=== PATIENT | female | born 1930 | race Caucasian/White ===

== ENCOUNTER 2017-02-27 08:11 | Outpatient (CLI) | payer MEDICARE ==
[2017-02-27 09:00] LABS: Hemoglobin 12.4 g/dL (12.0-16.0); Mean Corpuscular HGB CONC 32.5 g/dL (32.0-36.0); Mean Corpuscular Hemoglobin 31.9 pg (27.0-31.0); Mean Corpuscular Volume 98.1 fl (81.0-99.0); Platelet Count 185 thou/uL (130-400); RBC Distribution Width 11.8 % (11.5-14.5); White Blood Cell (WBC) Count 8.3 thou/uL (4.8-10.8)
[2017-02-27 09:08] LABS: Albumin 3.7 g/dL (3.4-4.8); Anion Gap 13 mmol/L (10-20); BUN (Urea Nitrogen) 31 mg/dL (9.8-20.1); BUN/Creatinine Ratio 18.34; Calc. Creatinine Clearance 0 mL/min (70-130); Calcium 8.8 mg/dL (7.8-10.44); Carbon Dioxide 25 mmol/L (23-31); Chloride 109 mmol/L (98-107); Estimated GFR-MDRD 29; Glucose 148 mg/dL (83-110); Potassium 4.2 mmol/L (3.5-5.1); Sodium 143 mmol/L (136-145)
[2017-02-27 18:04] LABS: Phosphorus 3.9 mg/dL (2.3-4.7)
== END 2017-02-27 08:12 | disposition home or self-care (01) ==
LOC: BURLAB 08:11
PROVIDERS: ATTEND Internal Medicine Nephrology
DX: E11.22 Type 2 diabetes mellitus with diabetic chronic kidney disease (principal); I12.9 Hypertensive chronic kidney disease with stage 1 through stage 4 chronic kidney disease, or unspecified chronic kidney disease; N18.3 Chronic kidney disease, stage 3 (moderate); N17.9 Acute kidney failure, unspecified; N39.0 Urinary tract infection, site not specified; E78.5 Hyperlipidemia, unspecified; I25.10 Atherosclerotic heart disease of native coronary artery without angina pectoris; R80.9 Proteinuria, unspecified
CPT/HCPCS: 36415; 80069; 85027

== ENCOUNTER 2018-05-04 18:33 | Emergency (ER) | payer MEDICARE ==
[2018-05-04 19:49] LABS: ALT (SGPT) 13 U/L (8-55); AST (SGOT) 13 U/L (5-34); Albumin 3.7 g/dL (3.4-4.8); Alkaline Phosphatase 65 U/L (40-150); Anion Gap 16 mmol/L (10-20); BUN (Urea Nitrogen) 31 mg/dL (9.8-20.1); Bilirubin, Total 0.9 mg/dL (0.2-1.2); Calc. Creatinine Clearance 0 mL/min (70-130); Calcium 9.3 mg/dL (7.8-10.44); Carbon Dioxide 26 mmol/L (23-31); Chloride 106 mmol/L (98-107); Estimated GFR-MDRD 29; Globulin 2.5 g/dL (2.4-3.5); Glucose 233 mg/dL (83-110); Potassium 4.2 mmol/L (3.5-5.1); Protein, Total 6.2 g/dL (6.0-8.3); Sodium 144 mmol/L (136-145)
[2018-05-04 19:51] LABS: INR-International Normal Ratio 0.9; Prothrombin Time 12.7 SEC (12.0-14.7)
[2018-05-04 19:53] LABS: #Basophils 0.1 thou/uL (0.0-0.2); #Eosinphils 0.1 thou/uL (0.0-0.7); #Lymphocytes 1.4 thou/uL (1.20-3.40); #Monocytes 0.7 thou/uL (0.11-0.59); #Neutrophils 10.9 thou/uL (1.40-6.50); %Basophils 0.4 % (0.0-1.0); %Eosinophils 0.4 % (0.0-10.0); %Lymphocytes 10.9 % (21.0-51.0); %Monocytes 5.1 % (0.0-10.0); %Neutrophils 83.1 % (42.0-75.0); Hemoglobin 12.4 g/dL (12.0-16.0); Mean Corpuscular HGB CONC 36.2 g/dL (32.0-36.0); Mean Corpuscular Hemoglobin 31.9 pg (27.0-31.0); Mean Corpuscular Volume 88.1 fL (78.0-98.0); Mean Platelet Volume 7.5 fL (7.4-10.4); Platelet Count 188 thou/uL (130-400); RBC Distribution Width 11.6 % (11.5-14.5); Red Blood Cell (RBC) Count 3.88 mill/uL (4.20-5.40); White Blood Cell (WBC) Count 13.1 thou/uL (4.8-10.8)
[2018-05-04 19:54] LABS: Band 1 % (5-11); Eosinophils 1 % (0-10); Lymphocytes 7 % (21-51); MDiff Complete? YES; Monocytes 3 % (0-10); Neutrophil 88 % (42-75)
[2018-05-04] MEDS ORDERED: Morphine 4 MG/ML Carpuject ONE (20:31)
--- NOTE | 2018-05-04 20:54 | RAD ---
RIGHT HIP TWO VIEWS: 05/04/2018 COMPARISON: 02/15/2011 FINDINGS: The quality of this film today is less than optimal, which decreases its sensitivity to subtle injuri es. The joint space is normal in width, and the articular surfaces are smooth. On the rotated view, there is a little lucency in the trochanteric region. See CT report to follow. There is a small metallic area in the soft tissues lateral to the proximal femur that may be a forei gn body in the soft tissues or it could be on the skin of the patient. IMPRESSION: Limited sensitivity study showing equivocal findings. See CT report to follow. POS: HOME
--- NOTE | 2018-05-05 09:30 | CT ---
PRELIMINARY REPORT/[facility]/EMERGENTY AFTER-HOURS PROCEDURE CT Abdomen and Pelvis Without Intravenous Contrast CLINICAL HISTORY: Pain; Abdominal pain and other: Rt hip; Generalized; Patient HX: Post fall abd pain & rt hip pain TECHNIQUE: Axial computed tomography images of the abdomen and pelvis without intravenous contrast. A ll CT scans at this facility use at least one of these dose optimization techniques: automated exposu re control; mA and/or kV adjustment per patient size (includes targeted exams where dose is matched t o clinical indication); or iterative reconstruction. Coronal and sagittal reformatted images were cre ated and reviewed. COMPARISON: No relevant prior studies available. FINDINGS: Lung bases: Unremarkable. No mass. No consolidation. ABDOMEN: Liver: Unremarkable. Gallbladder and bile ducts: There has been a cholecystectomy. No ductal dilation. Pancreas: Unremarkable. No ductal dilation. Spleen: Unremarkable. No splenomegaly. Adrenals: Unremarkable. No mass. Kidneys and ureters: Unremarkable. No obstructing stones. No hydronephrosis. Stomach and bowel: Prior right hemicolectomy. Moderate stool. No bowel obstruction. Colonic diverticu la without adjacent inflammatory change. PELVIS: Appendix: See above. Bladder: Unremarkable. No stones. Reproductive: There has been a hysterectomy. No adnexal cysts or masses are identified. ABDOMEN and PELVIS: Intraperitoneal space: Unremarkable. No free air. No significant fluid collection. Bones/joints: Minimally displaced right femoral neck transcervical fracture with extension into the g reater trochanter. No dislocation. Soft tissues: Unremarkable. Vasculature: Aortoiliac atherosclerosis. No abdominal aortic aneurysm. Lymph nodes: Unremarkable. No enlarged lymph nodes. IMPRESSION: 1. Allowing for unenhanced technique, no evidence for hollow or solid organ injury. 2. Right femoral neck and greater trochanter fracture. 3. Other findings as above. Thank you for allowing us to participate in the care of your patient. Dictated and Authenticated by: Destinee Morrison MD 05/04/2018 8:14 PM Central Time ([place] & [place]) FINAL REPORT: CT ABDOMEN AND PELVIS WITHOUT CONTRAST: 05/04/2018 TECHNIQUE: A spiral CT of the abdomen and pelvis was performed following trauma. Axial slices were acquired, an d then coronal and sagittal reconstructions are done. later, reconstructions were done through the r ight hip, which was the region of interest. FINDINGS: The lung bases are clear. The liver, spleen, pancreas, adrenal glands, kidneys, and abdominal aorta are unremarkable in appearance, within the limitations of a noncontrast study. There is no sign of o rgan laceration or hematoma. A prior cholecystectomy is noted. The bowel shows no distention to suggest obstruction, and there is no thickening of the bowel bello. No free air or free fluid is seen. CT of the pelvis shows no pelvic masses, fluid collections, or inflammatory changes. Sigmoid diverti culosis is noted without diverticulitis. Attention is drawn to the right hip. There is a fracture at the junction of the femoral neck and the trochanters, with extension into the greater trochanter. There is very minimal displacement. The r emainder of the bony pelvis and the left hip appear intact. No vertebral compressions are appreciate d. IMPRESSION: 1. Fracture at the junction of the right femoral neck and trochanters, with extension into the great er trochanter. Little displacement. 2. No evidence of abdominal or pelvic injury otherwise, within the limitations of the noncontrast sc an. Report in agreement with preliminary reading by Eliza. POS: HOME
== END 2018-05-04 21:28 | disposition short-term general hospital (02) ==
LOC: BURERS 18:33
DX: S72.001A Fracture of unspecified part of neck of right femur, initial encounter for closed fracture (principal); E11.9 Type 2 diabetes mellitus without complications; I10 Essential (primary) hypertension; W19.XXXA Unspecified fall, initial encounter
CPT/HCPCS: 74176; 80053; 85025; 85610; 96374; J2270

== ENCOUNTER 2019-08-17 12:06 | Emergency (ER) | payer MEDICARE ==
[2019-08-17] MEDS ORDERED: Adacel (T-DAP) 0.5 ML SYRINGE ONE (13:03)
== END 2019-08-17 13:15 | disposition home or self-care (01) ==
LOC: BURERS 12:06
DX: S61.253A Open bite of left middle finger without damage to nail, initial encounter (principal); E11.9 Type 2 diabetes mellitus without complications; I10 Essential (primary) hypertension; M10.9 Gout, unspecified; M19.90 Unspecified osteoarthritis, unspecified site; Z79.82 Long term (current) use of aspirin; Z79.899 Other long term (current) drug therapy; W55.01XA Bitten by cat, initial encounter
CPT/HCPCS: 90471; 90715